=== PATIENT | female | born 1980 | race African-American/Black ===

== ENCOUNTER 2019-01-22 13:06 | Emergency (ER) | payer MEDICAID ==
[~2019-01-22] VITALS: Ht 162.6 cm; Wt 90.9 kg
[2019-01-22 13:16] VITALS: Ht 162.6 cm; Wt 90.9 kg
[2019-01-22] MEDS ORDERED: IBUPROFEN800 MG PO (16:00)
[2019-01-22] MEDS ORDERED: CYCLOBENZAPRINE10 MG PO (16:00)
[2019-01-22] MEDS ORDERED: ACETAMINOPHEN500 M1 PO (16:00)
[2019-01-22 16:19] VITALS: BP 132/76
== END 2019-01-22 16:19 | disposition home or self-care (01) ==
LOC: D.ER 13:06
DX: M71.22 Synovial cyst of popliteal space [Baker], left knee (principal)

== ENCOUNTER → 2020-10-13 13:30 | Outpatient (CLI) | payer MEDICAID ==
[2019-01-22 13:16] VITALS: BMI 34.4
[~2020-10-13 13:30] MED LIST: ACETAMINOPHEN500 M1 PO; CYCLOBENZAPRINE10 MG PO; IBUPROFEN800 MG PO
== END | disposition home or self-care (01) ==
LOC: D.MAMMO 10-06 10:00
PROVIDERS: ATTEND Nurse Practitioner Obstetrics & Gynecology
DX: R92.8 Other abnormal and inconclusive findings on diagnostic imaging of breast (principal)